=== PATIENT | female | born 1965 | race Caucasian/White ===

== ENCOUNTER → 2020-06-16 | Outpatient (CLI) | payer OTHER ==
[~2020-06-16] MED LIST: ALBUTEROL0.63 MG/3 INH; GABAPENTIN300 MG PO; IBUPROFEN800 MG PO; INCRUSE ELLI62.5 MCG INH; ISORDIL PO; KLONOPIN0.5 MG PO; MEDROL4 MG PO; METOPROLOL SUCC25 MG PO; PREDNISONE20 MG PO; THEO-DUR 300 M300 MG PO; THERAGRAN M TAB1 EA PO; ZANTAC150 MG PO; ZITHROMAX250 MG PO; ZOCOR20 MG PO; ZOLOFT100 MG PO; [UNRECOGNIZED DRUG - OTHER] PO
== END ==
LOC: SLEEP-COR 21:30
DX: G47.33 Obstructive sleep apnea (adult) (pediatric) (principal)
CPT/HCPCS: 95811